=== PATIENT | female | born 2000 | race Caucasian/White ===

== ENCOUNTER 2022-10-11 07:32 | Outpatient (CLI) | payer OTHER | END 2022-10-11 07:33 | disposition home or self-care (01) | LOC: TBSIIMAG 07:32 | PROVIDERS: ATTEND Family Medicine | DX: M25.572 Pain in left ankle and joints of left foot (principal); S92.222A Displaced fracture of lateral cuneiform of left foot, initial encounter for closed fracture; M25.472 Effusion, left ankle; M77.52 Other enthesopathy of left foot and ankle ==